=== PATIENT | male | born 2000 | race Caucasian/White ===

== ENCOUNTER 2018-07-28 15:35 | Emergency (ER) | payer OTHER ==
[2018-07-28 16:08] VITALS: BP 107/61
--- NOTE | 2018-07-28 18:10 | UC ---
Throat Pain/Nasal Kenny HPI - HPI Summary HPI Summary: 18 y. male with PMH + for hyperactive, on meds for HIV prphylaxis, no dx of HIV / AIDS, presents for throat pain, sinus congestiong, tactile fevers, chills, productive cough w green sputum, no blood, mild SOB, + NVCD and painful swallowing x 1 weeks. symptoms worsening. no recent ABX use. denies ear pain, sutdent at IC - History of Current Complaint Chief Complaint: UCRespiratory Stated Complaint: FLU SYMPTOMS Time Seen by Provider: 07/28/18 17:38 Hx Obtained From: Patient Onset/Duration: Sudden Onset, Lasting Days Severity: Moderate Pain Intensity: 6 Pain Scale Used: 0-10 Numeric Cough: Sputum Appears - green no blood Associated Signs & Symptoms: Positive: Dysphagia - but able to swallow, can hold fluids down well, Fever, Vomiting - Allergies/Home Medications Allergies/Adverse Reactions: Allergies Allergy/AdvReac Type Severity Reaction Status Date / Time Penicillins Allergy Joint Pain Verified 07/28/18 16:08 Home Medications: Home Medications Dextroamphetamine/Amphetamine [Adderall 10 mg-] 1 tab PO DAILY 07/28/18 [ History Confirmed 07/28/18] Tenofovir/Emtricitab 100/150NF [Truvada 100 mg-150 mg Tablet] 1 tab PO 07/28/18 [History] PMH/Surg Hx/FS Hx/Imm Hx Previously Healthy: Yes - Surgical History Surgical History: Yes Surgery Procedure, Year, and Place: wisdom teeth extraction - Social History Alcohol Use: Occasionally Substance Use Type: Marijuana Substance Use Comment - Amount & Last Used: once a monthly Smoking Status (MU): Never Smoked Tobacco Review of Systems Constitutional: Fever, Chills, Fatigue ENT: Sore Throat Respiratory: Shortness Of Breath, Cough Gastrointestinal: Vomiting, Diarrhea, Nausea Is Patient Immunocompromised?: No All Other Systems Reviewed And Are Negative: Yes Physical Exam - Summary Physical Exam Summary: neg posterior lad, + supamand b/l LAD, tender. erythematous pharynx with b/l exudates, tonsillar enlargment, no nuchal rigidity, TM clear, lungs clear, mild tachy Triage Information Reviewed: Yes Appearance: No Pain Distress, Well-Nourished, Ill-Appearing - mild Vital Signs: Initial Vital Signs Temp 98.1 F 07/28/18 16:02 Pulse 103 07/28/18 16:02 Resp 18 07/28/18 16:02 BP 107/61 07/28/18 16:02 Pulse Ox 99 07/28/18 16:02 Vital Signs Reviewed: Yes Eyes: Positive: Conjunctiva Clear ENT: Positive: Pharyngeal erythema - + white exudates b/l, moderate tonsillar enlargement b/l erythema b/l, TMs normal, Uvula midline. Negative: Sinus tenderness Neck: Positive: Nontender, Enlarged Nodes @ - submand b/l Respiratory: Positive: Chest non-tender, Lungs clear, Normal breath sounds, No respiratory distress, No accessory muscle use Cardiovascular: Positive: RRR, No Murmur Neurological Exam: Normal Psychological Exam: Normal Throat Pain/Nasal Course/Dx - Course Course Of Treatment: rapid strep negative, however due to clinical presenation abx given, follow up with [facility] on campus within 2-3 days, return if no improvement or worsening x 48 hours - Differential Dx/Diagnosis Provider Diagnoses: pharyngitis Discharge - Sign-Out/Discharge Documenting (check all that apply): Patient Departure All imaging exams completed and their final reports reviewed: No Studies - Discharge Plan Condition: Fair Disposition: HOME Prescriptions: Azithromyxin DESIRE (NF) [Z-Desire (Zithromax) 250 mg tabs #6] 2 tab PO .TODAY, THEN 1 DAILY #6 tab Patient Education Materials: Pharyngitis (ED) Referrals: No Primary Care Phys,NOPCP [Primary Care Provider] - Additional Instructions: - Increase fluid intake - Antibiotics as prescribed - Follow up with [facility] in 2-3 days - Return if no improvement or worsening - Tylenol for fever, body aches - increased rest - Billing Disposition and Condition Condition: FAIR Disposition: Home
== END 2018-07-28 18:27 | disposition home or self-care (01) ==
LOC: UCEAST 15:35
DX: J02.9 Acute pharyngitis, unspecified (principal); Z88.0 Allergy status to penicillin
CPT/HCPCS: 87070; 87077; 87651; 99202; G0463